=== PATIENT | male | born 1950 | race Two or more races ===

== ENCOUNTER 2017-05-07 09:51 | Day surgery (SDC) | payer MEDICARE ==
[2017-05-06 17:30] VITALS: BMI 31.6
[~2017-05-07 09:51] MED LIST: ACETAMINOPHEN 325 MG TABLET (FP) PO PRN; TRIAMCINOLONE ACET 40MG/1ML VIAL IM ONE
[2017-05-07] MEDS ORDERED: CIPROFLOXACIN 0.3% EYE DROPS 5 ML BOTTLE ONE (10:48)
[2017-05-07] MEDS: CIPROFLOXACIN HCL 0.3% OPHTH 2.5ML BOTTLE OP SCH ×3 (10:50→11:00)
[2017-05-07 11:24] VITALS: TEMP 98.4
[2017-05-07] MEDS ORDERED: LIDOCAINE HCL 2% JELLY (5 ML/TUBE) ONE (12:12)
[2017-05-07] MEDS ORDERED: LIDOCAINE HCL 2% JELLY (5 ML/TUBE) TP ONE (12:15)
[2017-05-07] MEDS ORDERED: TRIAMCINOLONE ACET 40MG/1ML VIAL ONE (12:24)
[2017-05-07] MEDS ORDERED: POVIDONE-IODINE 5% OPHTHALMIC PREP 30 ML SOLUTION OS ONE (12:41)
[2017-05-07] MEDS ORDERED: MIDAZOLAM HCL 2 MG/2 ML SINGLE DOSE VIAL ONE (12:41)
[2017-05-07] MEDS ORDERED: LIDO 2%/EPI 1:200000 PRESRVFRE (20 ML SDVIAL) INF ONE (12:51)
[2017-05-07] MEDS ORDERED: BSS (NA/CA/MG/K) BALANCED SALT SOLUTION OPHTH SOLN 15 ML BOTTLE OS ONE (12:51)
[2017-05-07] MEDS ORDERED: TRIAMCINOLONE ACET 40MG/1ML VIAL IM ONE (13:16)
--- NOTE | 2017-05-07 13:57 | OP ---
DATE OF OPERATION: 05/07/2017 SURGEON: Joey Bear M.D. PREOPERATIVE DIAGNOSIS: Pterygium, left eye. POSTOPERATIVE DIAGNOSIS: Pterygium, left eye. PROCEDURE: Excision of pterygium with conjunctival autograft; left eye. ANESTHESIA: Topical MAC. COMPLICATONS: None. DESCRIPTION OF PROCEDURE: The patient was brought into the operating room and correctly identified along with the operative site. He was then prepped and draped in the usual sterile fashion including 5% Betadine solution in the conjunctival sac and an eyelid drape. An eyelid speculum was then placed into the left eye. The pterygium was inspected, and noted to be prominent nasally. The pterygium was then freed from the corneal surface using blunt dissection with Colibri forceps and a Weck-Carol Ann spear. Occasionally, Yoli scissors were also used for blunt dissection. Care was made not to breech Bowmans membrane. After the pterygium was moved, there was a significant amount of normal conjunctiva beneath it. Two relaxing incisions were in the conjunctiva superior and inferior, and the pterygium excised at its base with care made not to damage the medial rectus tendon by elevating the pterygium during excision. The conjunctival defect was measured and measured approximately 6 mm x 6 mm vertically and horizontally respectively. The area on the cornea of the pterygium excision was then polished using a 57 blade as well as a sindy bur. Bare sclera was also cleaned using Yoli scissors as well as Colibri forceps. A small amount of cautery was used to control any bleeding as well as placing topical lidocaine with epinephrine on the surface. Attention was then placed to the superotemporal conjunctiva, and an approximately 7 x 7 mm conjunctival autograft was created by injecting lidocaine 1% with epinephrine subconjunctivally, and then, the conjunctival autograft was then brought over and secured in place in the nasal conjunctival defect using four 10-0 nylon sutures. Care was made to keep the conjunctival autograft approximately 1 mm from the limbus. At the end of the procedure, the graft was noted to be well secured. There was no bleeding noted. Kenalog was injected subconjunctivally at the site of the pterygium excision. Topical vancomycin given. The eye patched, and the patient discharged from the operating room in a stable condition. JOEY BEAR M.D. [id number]
[2017-05-07 14:43] VITALS: BP 142/73; PULSE 93
--- NOTE | 2017-05-09 12:59 | PATH ---
Surgical Pathology Report Patient Name: LD LANCE [facility]. Rec. #: [id number] /Age/Gender: 1950 (Age: 67) / F Account: [id number] Location: [facility] SURGICAL Taken: 05/07/2017 Received: 05/08/2017 Reported: 05/09/2017 Physicians: Joey Cesar M.D. Specimen(s) Received PTERYGIUM LEFT EYE Clinical History Pterygium left eye Final Diagnosis CONJUNCTIVA, LEFT EYE, PTERIGIUM, EXCISION: CONJUNCTIVA WITH ELASTIC DEGENERATION, FIBROSIS AND NEOVASCULARIZATION CONSISTENT WITH PTERIGIUM. Electronically Signed Jose Martin Poole M.D. Gross Description Received in formalin, labeled "nasal pterygium left eye" is a brown, irregular portion of soft tissue measuring 0.4 cm in greatest dimension. The specimen is submitted in toto in one cassette. /05/08/201705/08/2017
== END 2017-05-07 13:55 | disposition home or self-care (01) ==
LOC: JASU-SURG 09:51 → EDSEX 11:00 → JASU-SURG 13:55
PROVIDERS: ATTEND Ophthalmology
PROC: 08U107Z Supplement of Left Eye with Autologous Tissue Substitute, Open Approach (ICD-10-PCS; principal; 2017-05-07 12:00)
DX: H11.002 Unspecified pterygium of left eye (principal)
CPT/HCPCS: 88304-TC

== ENCOUNTER 2018-02-18 06:05 | Day surgery (SDC) | payer MEDICARE ==
[2018-02-17 13:33] VITALS: BMI 31.2
[~2018-02-18 06:05] MED LIST changes: +CIPROFLOXACIN HCL 0.3% OPHTH 2.5ML BOTTLE OP SCH; +EPINEPHrine/PF 1 MG/1 ML (1:1,000) AMPULE SQ ONE; +LIDOCAINE HCL 1% PRESERVATIVE FREE - 30ML VIAL IO ONE; +POVIDONE-IODINE 5% OPHTHALMIC PREP 30 ML SOLUTION OS ONE; +TETRACAINE 0.5% OPHTH SOLN 2 ML BOTTLE TP ONE; -TRIAMCINOLONE ACET 40MG/1ML VIAL IM ONE; +TRYPAN BLUE 0.5 ML DISP.SYRIN IO ONE
[2018-02-18] MEDS ORDERED: PHENYLEPHRINE 2.5% OPHTH SOLN 15 ML BOTTLE ONE (06:32)
[2018-02-18] MEDS ORDERED: CYCLOPENTOLATE HCL 1% OPHTH SOLN 2 ML BOTTLE ONE (06:32)
[2018-02-18] MEDS ORDERED: TROPICAMIDE 1% OPHTH SOLN 15 ML BOTTLE ONE (06:32)
[2018-02-18] MEDS ORDERED: FLURBIPROFEN 0.03% OPHTH SOLN 2.5 ML BOTTLE ONE (06:32)
[2018-02-18] MEDS ORDERED: OFLOXACIN 0.3% OPHTHALMIC SOLUTION 5 ML BOTTLE ONE (06:32)
[2018-02-18] MEDS: TROPICAMIDE 1% OPHTH SOLN 15 ML BOTTLE OP SCH ×3 (06:46→07:12)
[2018-02-18] MEDS: FLURBIPROFEN 0.03% OPHTH SOLN 2.5 ML BOTTLE OP SCH ×3 (06:46→07:11)
[2018-02-18] MEDS: CYCLOPENTOLATE HCL 1% OPHTH SOLN 2 ML BOTTLE OP SCH ×3 (06:46→07:11)
[2018-02-18] MEDS: PHENYLEPHRINE 2.5% OPHTH SOLN 15 ML BOTTLE OP SCH ×3 (06:46→07:12)
[2018-02-18] MEDS: OFLOXACIN 0.3% OPHTHALMIC SOLUTION 5 ML BOTTLE OP SCH ×3 (06:46→07:11)
[2018-02-18] MEDS ORDERED: CHONDROITIN SU A/HYALUR SOD 1 KIT ONE (07:03)
[2018-02-18] MEDS ORDERED: EPINEPHrine/PF 1 MG/1 ML (1:1,000) AMPULE ONE (07:09)
[2018-02-18] MEDS ORDERED: VANCOMYCIN 500 MG VIAL (RESTRICTED TO ID ONLY) ONE (07:10)
[2018-02-18] MEDS ORDERED: LIDOCAINE HCL/PF 1% SDV 5ML VIAL ONE (07:10)
[2018-02-18] MEDS ORDERED: TETRACAINE 0.5% OPHTH SOLN 2 ML BOTTLE ONE (07:11)
[2018-02-18] MEDS ORDERED: WATER FOR INJ,STERILE 10 ML ONE (07:11)
[2018-02-18] MEDS ORDERED: POVIDONE-IODINE 5% OPHTHALMIC PREP 30 ML SOLUTION ONE (07:11)
[2018-02-18] MEDS ORDERED: TETRACAINE 0.5% OPHTH SOLN 2 ML BOTTLE TP ONE (08:00)
[2018-02-18] MEDS ORDERED: MIDAZOLAM HCL 2 MG/2 ML SINGLE DOSE VIAL ONE (08:02)
[2018-02-18] MEDS ORDERED: POVIDONE-IODINE 5% OPHTHALMIC PREP 30 ML SOLUTION OS ONE (08:05)
[2018-02-18] MEDS ORDERED: LIDOCAINE HCL 1% PRESERVATIVE FREE - 30ML VIAL IO ONE (08:11)
[2018-02-18] MEDS ORDERED: EPINEPHrine/PF 1 MG/1 ML (1:1,000) AMPULE SQ ONE (08:12)
[2018-02-18] MEDS ORDERED: TRYPAN BLUE 0.5 ML DISP.SYRIN IO ONE (08:12)
[2018-02-18] MEDS ORDERED: CHONDROITIN SU A/HYALUR SOD 1 KIT IO ONE (08:13)
[2018-02-18] MEDS ORDERED: TRYPAN BLUE 0.5 ML DISP.SYRIN ONE (08:47)
--- NOTE | 2018-02-18 09:10 | SPEC ---
DATE OF OPERATION: 02/18/2018 PREOPERATIVE DIAGNOSIS: Cataract, left eye. POSTOPERATIVE DIAGNOSIS: Cataract, left eye. PROCEDURE: Phacoemulsification of left cataract with posterior chamber intraocular lens implantation. Lens used [id number], 18.5 diopter power, serial No. [id number]. SURGEON: Gus Bear M.D. ANESTHESIA: Topical MAC. COMPLICATIONS: None. DESCRIPTION OF PROCEDURE: The patient was brought to the operating room and correctly identified along with the operative site and the correct intraocular lens duarte. The patient was then prepped and draped in the usual sterile fashion including 5% Betadine solution in the conjunctival sac and an eyelid drape. An eyelid speculum was then placed in the eye. A paracentesis port was created and approximately 0.5 mL of preservative free Lidocaine was then injected into the eye. Viscoelastic was then injected to inflate the anterior chamber. A temporal clear corneal wound was created. A continuous circular capsulorrhexis was performed. The nucleus was then hydrodissected with BSS and removed with phacoemulsification. The remaining cortical material was irrigated and aspirated. Viscoelastic was injected to inflate the capsular bag and the intraocular lens was then implanted into the capsular bag. The remaining Viscoelastic was irrigated and aspirated from the eye. The IOL was noted to be well centered and completely covered by the anterior capsulorrhexis. Topical vancomycin was placed and the eye patched and shielded. All wounds were tested and found to be watertight. No suture was placed. The eye was then shielded. The patient was then discharged from the operating room in stable condition. GUS BEAR M.D. [id number]
[2018-02-18 09:44] VITALS: PULSE 90
[2018-02-18 09:46] VITALS: TEMP 98
[2018-02-18 10:07] VITALS: BP 130/70
== END 2018-02-18 10:09 | disposition home or self-care (01) ==
LOC: JASU-SURG 06:05
PROVIDERS: ATTEND Ophthalmology
PROC: 08RK3JZ Replacement of Left Lens with Synthetic Substitute, Percutaneous Approach (ICD-10-PCS; principal; 2018-02-18 08:00)
DX: H26.9 Unspecified cataract (principal)
CPT/HCPCS: 82962

== ENCOUNTER 2021-07-28 07:29 | Emergency (ER) | payer OTHER ==
[2021-07-28 07:40] VITALS: BP 133/73; PULSE 99; TEMP 97.4; BMI 30.3
== END 2021-07-28 09:37 | disposition home or self-care (01) ==
LOC: JER 07:29
DX: R05.1 Acute cough (principal); J06.9 Acute upper respiratory infection, unspecified; Z11.52 Encounter for screening for COVID-19
CPT/HCPCS: 71046-TC-FY; 87807; 99284-25; C9803; U0003; U0005

== ENCOUNTER 2022-10-30 08:56 | Emergency (ER) | payer OTHER ==
[2022-10-30 09:12] VITALS: RESP 18; BMI 31.6
[2022-10-30] MEDS ORDERED: ACETAMINOPHEN 325 MG TABLET (FP) PO ONE (09:26)
[2022-10-30] MEDS ORDERED: ACETAMINOPHEN 325 MG TABLET (FP) ONE (09:33)
[2022-10-30 10:59] VITALS: BP 139/76; PULSE 99; TEMP 98.8
== END 2022-10-30 10:58 | disposition home or self-care (01) ==
LOC: JERFT 08:56 → JER 08:56 → JERFT 10:58
DX: U07.1 COVID-19 (principal)
CPT/HCPCS: 0241U-QW; 99283-25